=== PATIENT | male | born 1985 | race Caucasian/White ===

== ENCOUNTER 2017-11-08 10:46 | Inpatient (IN) | payer OTHER ==
[~2017-11-08] VITALS: Ht 177.8 cm; Wt 99.0 kg
[2017-11-08 11:43] LABS: Basophils # (auto) 0.1 uL; Basophils % (auto) 0.7 % (0.0-2.0); Eosinophils # (auto) 0 uL; Eosinophils % (auto) 0.5 % (0.0-7.0); Hematocrit 49.8 % (41.0-53.0); Lymphocytes # (auto) 2.8 uL; Lymphocytes % (auto) 35.9 % (10.0-50.0); Mean Corpuscular Hemoglobin 31.3 pg (28.0-32.0); Mean Corpuscular Hgb Conc. 34.1 g/dL (32.0-36.0); Mean Corpuscular Volume 91.7 fL (80.0-100.0); Monocytes # (auto) 0.5 uL; Monocytes % (auto) 6.8 % (0.0-12.0); Neutrophils # (auto) 4.4 uL; Neutrophils % (auto) 56.1 % (37.0-80.0); Nucleated Red Blood Cells % 0.1 %; Platelet Count (auto) 244 10^3/uL (140-450); Red Blood Cells 5.43 10^6/uL (4.5-5.90); Red Cell Distribution Width 13.4 % (11.8-14.3); White Blood Cell 7.9 10^3/uL (4.4-10.8)
[2017-11-08 12:05] LABS: Albumin 4.4 g/dL (3.4-5.0); BUN/Creatinine Ratio 9.8; Bilirubin, Total 0.5 mg/dL (0.2-1.0); Potassium 4.1 mmol/L (3.5-5.1); Total Protein 7.8 g/dL (6.4-8.2)
[2017-11-08 13:50] LABS: INR 0.96 (0.9-1.15); Partial Thromboplastin Time 29.1 sec (23.78-33.04); Prothrombin Time 10.3 sec (9.27-12.13)
[2017-11-08] MEDS ORDERED: LORazepam 0.5 MG TAB PO PRN ×2 (14:45→20:30)
[2017-11-08] MEDS ORDERED: LABETALOL HCL 5 MG/ML ML 20ML VIAL IV PRN (14:45)
[2017-11-08] MEDS ORDERED: TEMAZEPAM 15 MG CAP PO PRN (14:45)
[2017-11-08] MEDS ORDERED: MORPHINE SULF(PF) 0.5MG/ML 10ML VIAL IV PRN (14:45)
[2017-11-08] MEDS ORDERED: LACTULOSE 20Gm/30ML SOLN PO PRN (14:45)
[2017-11-08] MEDS ORDERED: MORPHINE SULFATE 8mg/ml INJ SDV IV PRN (14:45)
[2017-11-08] MEDS ORDERED: HYDROcodone-ACET 5/325MG TAB PO PRN (14:45)
[2017-11-08] MEDS ORDERED: NITROGLYCERIN 0.4 MG SL TAB SL PRN (14:45)
[2017-11-08] MEDS ORDERED: PROMETHAZINE HCL 25 MG/ML 1ML IV PRN (14:45)
[2017-11-08] MEDS ORDERED: ACETAMINOPHEN 500 MG TAB PO PRN (14:45)
[2017-11-08] MEDS ORDERED: ASPirin 81 mg TAB PO ONE (15:00)
[2017-11-08] MEDS ORDERED: ENOXAPARIN SOD 40 MG/0.4 ML SYRINGE SC ONE (15:00)
[2017-11-08 15:39] LABS: Folate (Folic Acid) 14.45 ng/mL (5.38-24)
[2017-11-08] MEDS: SODIUM CHLORIDE 0.9% 1,000 ML IV SCH (15:52)
[2017-11-08] MEDS ORDERED: LORazepam 2MG/ML-1ML VIAL IV PRN (20:30)
[2017-11-08 20:55] VITALS: BP 124/82
[2017-11-08] MEDS ORDERED: ATORVASTATIN 20 MG TAB PO SCH (22:00)
[2017-11-08 23:37] VITALS: BP 124/82
[2017-11-09] MEDS ORDERED: GABA300C10 PO (00:45)
[2017-11-09] MEDS ORDERED: GABA100C9 PO (00:45)
[2017-11-09] MEDS: SODIUM CHLORIDE 0.9% 1,000 ML IV SCH ×2 (03:08→16:35)
[2017-11-09 06:08] VITALS: BP 110/68
[2017-11-09 09:00] VITALS: BP 116/77
[2017-11-09] MEDS ORDERED: ENOXAPARIN SOD 40 MG/0.4 ML SYRINGE SC SCH (10:00)
[2017-11-09] MEDS ORDERED: ASPirin 81 mg TAB PO SCH (10:00)
[2017-11-09 10:32] LABS: Urine Bacteria FEW /hpf (None Seen); Urine Blood Negative /uL (Negative); Urine WBC <1 /hpf (0 - 3)
[2017-11-09 10:46] LABS: Alcohol, Urine < 3.0 mg/dL (0-5); Amphetamine Screen, Urine NEGATIVE (NEGATIVE); Barbiturate Scree,Urine NEGATIVE (NEGATIVE); Benzodiazephine Screen, Urine NEGATIVE (NEGATIVE); Cannabinoid Screen, Urine NEGATIVE (NEGATIVE); Cocaine Screen, Urine NEGATIVE (NEGATIVE); Opiate Scree,Urine NEGATIVE (NEGATIVE); Phencyclidine Screen, Urine NEGATIVE (NEGATIVE)
[2017-11-09] MEDS ORDERED: ASPI81CH43 PO (12:37)
[2017-11-09] MEDS ORDERED: ATOR20TA50 PO (12:37)
[2017-11-09 13:00] VITALS: BP 122/74
[2017-11-09 17:00] VITALS: BP 118/81
== END 2017-11-09 18:42 | disposition home or self-care (01) | DRG 69 ==
LOC: EDBD 10:46 → ER 10:46 → TELE 10:47 → TELE-EAST 20:54
PROVIDERS: ADMIT Internal Medicine; ATTEND Internal Medicine
DX: G45.9 Transient cerebral ischemic attack, unspecified (principal); F43.10 Post-traumatic stress disorder, unspecified; F32.9 Major depressive disorder, single episode, unspecified; R47.81 Slurred speech; K59.00 Constipation, unspecified; G47.00 Insomnia, unspecified; F17.200 Nicotine dependence, unspecified, uncomplicated; F41.0 Panic disorder [episodic paroxysmal anxiety]; E66.9 Obesity, unspecified; Z68.31 Body mass index [BMI] 31.0-31.9, adult; Z79.82 Long term (current) use of aspirin; Z82.49 Family history of ischemic heart disease and other diseases of the circulatory system
CPT/HCPCS: 36415; 70450; 70551; 71046; 80053; 80307; 81001; 82550; 82607; 82746; 83735; 84443; 85025; 85610; 85652; 85730; 93306; 93886; 94761; 96372